=== PATIENT | male | born 1990 | race Caucasian/White ===

== ENCOUNTER 2016-11-10 07:33 | Emergency (ER) | payer BC, MEDICAID ==
[2016-11-10 07:43] VITALS: BP 148/95
--- NOTE | 2016-11-10 08:19 | UC ---
Yrn Haque Adam, [facility] on 11/10/16 at 0743 . Throat Pain/Nasal Brian HPI - HPI Summary HPI Summary: Doctor's Note: A 26 y/o white male presents with a cough for 1 week and a sore throat that began yesterday. In the [facility] vital signs are stable and the pt is afebrile. Note is made of BP of 148/95. Pulse ox is 96. The pain is described as 6/10. Pt does not smoke. He has had a heart ablation for tachycardia. He has multiple allergies. He is on no prescription medications. Review of EMR shows a visit in 2011 for palpitations. In Room: Pt states that his chief complaint is the cough. He has been producing some mucous with the cough. He states that the Robotussin he has been taking is not helping. He reports positive sore throat and some CP associated with the cough. He denies nasal discharge. He lives with his family and states that no one around him has been sick recently. He has been working outside doing [employer] for over a month and he states that he has been exposed to dust from cutting boards. Negative Hx of asthma, tobacco, or inhaler use. He denies any FMHx. - History of Current Complaint Chief Complaint: UCGeneralIllness Stated Complaint: COUGH SORE THROAT Hx Obtained From: Patient Onset/Duration: Gradual Onset, Lasting Days, Still Present Severity: Moderate Pain Intensity: 6 Pain Scale Used: 0-10 Numeric Cough: Productive Associated Signs & Symptoms: Negative: Nasal Discharge, Fever - Allergies/Home Medications Allergies/Adverse Reactions: Allergies Allergy/AdvReac Type Severity Reaction Status Date / Time Iodine Allergy Mild Hives Verified 11/10/16 07:37 Ketorolac Tromethamine Allergy Unknown Unknown Verified 11/10/16 07:37 [From Toradol] Reaction Details Latex Allergy Unknown Unknown Verified 11/10/16 07:37 Reaction Details Moxifloxacin [From Avelox] Allergy Unknown Unknown Verified 11/10/16 07:37 Reaction Details Penicillins [PCN] Allergy Unknown Unknown Verified 11/10/16 07:37 Reaction Details Home Medications: Home Medications Dextromethorphan Polistirex [Robitussin 12 Hour Cough] 1 PRN 11/10/16 [History] PMH/Surg Hx/FS Hx/Imm Hx Endocrine History Of: Denies: Diabetes, Thyroid Disease Cardiovascular History Of: Reports: Cardiac Disorders - tachycardia - heart surgery Denies: Hypertension Respiratory History Of: Denies: COPD, Asthma GI/ History Of: Denies: Ulcer - Surgical History Surgical History: Yes Surgery Procedure, Year, and Place: HEART ABLATION - Family History Known Family History: Positive: None - Per pt - Social History Occupation: Employed Full-time Lives: With Family - Mother Alcohol Use: None Substance Use Type: None Smoking Status (MU): Never Smoked Tobacco Review of Systems Constitutional: Negative ENT: Sore Throat Respiratory: Cough Cardiovascular: Chest Pain - With cough All Other Systems Reviewed And Are Negative: Yes Physical Exam Triage Information Reviewed: Yes Appearance: Well-Appearing, No Pain Distress, Well-Nourished Vital Signs: Initial Vital Signs Temp 97.2 F 11/10/16 07:38 Pulse 96 11/10/16 07:38 Resp 18 11/10/16 07:38 BP 148/95 11/10/16 07:38 Pulse Ox 96 11/10/16 07:38 Eyes: Positive: Conjunctiva Clear ENT: Positive: Hearing grossly normal, Pharyngeal erythema, TMs normal. Negative: Muffled/hoarse voice Neck: Positive: Supple, No Lymphadenopathy Respiratory: Positive: Chest non-tender, Other: - Extended expiratory phase Cardiovascular: Positive: RRR, No Murmur Abdomen Description: Positive: Nontender, No Organomegaly, Soft Bowel Sounds: Positive: Present Musculoskeletal: Positive: Strength Intact, ROM Intact Neurological: Positive: Alert Psychological: Positive: Age Appropriate Behavior Skin: Negative: rashes Diagnostics - Laboratory Diagnostic Studies Completed/Ordered: Group A Strep Rapid - Negative Throat Pain/Nasal Course/Dx - Course Course Of Treatment: Strep was negative. Assessment/Plan: Patient's examination does not suggest pneumonia. He does work outside and is exposed to dust. He is consistent with bronchitis with bronchospasm and his lungs appear to be hyperirritable. I discussed with pt the use of bronchodilators and various other techniques to deal with his cough. This condition has been present for a week. I will start him on Zithromax. 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 He states that he has been clean for over 8 months. His [facility] [employer] number is [id number]. The pt lives with his parents and will have his parents hold the Robotussin with codeine to be given to him only if needed prior to bed. - Differential Dx/Diagnosis Differential Diagnosis/HQI/PQRI: Other - Pneumonia vs bronchitis Provider Diagnoses: Bronchitis with bronchospasm Discharge - Discharge Plan Condition: Stable Disposition: HOME Prescriptions: Albuterol HFA INHALER* [Ventolin HFA Inhaler*] 1 - 2 puff INH Q4H PRN #1 mdi PRN Reason: Shortness Of Breath Azithromycin TAB* [Zithromax TAB*] 250 mg PO DAILY #6 tab Benzonatate CAP* [Tessalon CAP*] 100 mg PO TID #20 cap MDD 3 Spacer/Aerosol-Holding Chamber [Aerochamber Mv] 1 mis XX Q6HR #1 mis guaiFENesin/CODIEN 100MG-10MG* [Robitussin AC 100Mg-10Mg*] 5 ml PO Q4H #60 udc MDD 4 tsp Patient Education Materials: Acute Bronchitis (ED), Bronchospasm (ED) Referrals: Chapito SAUCEDA,Kyle Fiore [Primary Care Provider] - Additional Instructions: DISCUSSED: You have bronchitis with bronchospasm. 1. Use codeine only at night. Stop using if there are any problems. 2. You have cough pills for during the day. 3. Use inhaler and spacer, 2 puffs 4 times a day for 1-3 days. 4. Take Z cecil. 5. See other important information below. COUGH, CONGESTION of CHEST, SINUSES OR EARS: The most important goal is to liquefy all the phlegm and get it out of your head and chest. Any illness causing cough, congestion, sore throat or sinus discomfort can be helped by doing the following: STAND UNDER SHOWER STREAM TO LOOSEN SECRETIONS. STAY AWAY FROM ANY SMOKE OR IRRITANTS. WHAT ELSE CAN HELP RELIEVE YOUR SYMPTOMS: GENERAL TYPES OF MEDICINE THAT MAY HELP DECONGESTANTS: helps relieve stuffiness and clears sinuses. Pseudoephedrine ( Sudafed or generic) is effective but you need to ask the pharmacist for it because it may be kept behind the counter. ANTIHISTAMINES: are NOT helpful in many colds and flus because they can worsen sore throat, dry eyes and mouth and cause drowsiness. Examples are diphenhydramine, doxylamine and chlorpheniramine. They can help dry you out if you are having profuse, clear drainage from the nose. EXPECTORANTS: helps thin mucous in the nose and chest, making it easier to clear the fluid out. Expectorants are in most combination cough/cold remedies and should be taken with plenty of water. Guaifenesin is the most common expectorant and it comes in pill or liquid form. Mucinex is an extended release form of guaifenesin. COUGH SUPPRESANT: reduces the body's cough reflex. Dextromethorphan is in over the counter products, but sometimes narcotics such as codeine or hydrocodone are used to suppress cough. SPECIFIC MEDICATIONS: The most important goal is to liquefy all the phlegm and get it out of your head and chest: The following medicines (in prescription form or you can buy them without prescription) may help: To help with cough: DEXTROMETHORPHAN (Vicks, Robitussin, Nyquil and other brands) To help break up phlegm: GUAIFENESIN (Mucinex, Robitussin, other brands) To help clear congestion: PSEUDOEPHEDRINE (Sudafed, Dimetapp, other brands) TRY TO CLEAR NOSE: AFRIN NASAL SPRAY: 2-3 SPRAYS PER NOSTRIL, TWICE A DAY FOR TWO DAYS ONLY. USEFUL WAYS TO FEEL BETTER WITHOUT MEDICATIONS: STAND UNDER SHOWER STREAM TO LOOSEN SECRETIONS. USE A VAPORIZOR. STAY AWAY FROM ANY SMOKE OR IRRITANTS. USE SALINE NASAL SPRAY TO KEEP FLOW OF MUCOUS FROM NOSTRILS AND SINUSES. CONSIDER USING NETI POT TO HELP WITH ALLERGIES AND CONGESTION IN THE NOSE. USE THIS THREE TIMES A WEEK. YOU CAN GET THIS AT [employer] [place] OR VARIOUS DRUGSTORES. DRINK LOTS OF WARM FLUIDS USEFUL HOME REMEDIES: WARM WATER GARGLES, WITH TSP OF SALT PER 8 OUNCES OF WATER, GARGLE FOR A FEW SECONDS AND SPIT OUT; GARGLE AND SPIT OUT; EVERY THREE HOURS. AND/OR: WARM WATER OR TEA, HONEY AND LEMON; 2-3 CUPS A DAY. FOR SORE THROAT: KEEP THROAT MOIST WITH LOZENGES; TEA AND HONEY. USE WARM WATER GARGLES 3-4 TIMES A DAY. FOLLOW UP: RE-CHECK IN 1O DAYS, NEEDED, IF YOU ARE NOT IMPROVING. RETURN HERE OR SEE YOUR PHYSICIAN. RE-CHECK SOONER IF INCREASED PAIN OR TEMPERATURE. The documentation as recorded by the Yrn shields,Hussein accurately reflects the service I personally performed and the decisions made by me, Romulo Woodson MD.
== END 2016-11-10 08:20 | disposition home or self-care (01) ==
LOC: UCEAST 07:33
DX: J40 Bronchitis, not specified as acute or chronic (principal); Z88.0 Allergy status to penicillin
CPT/HCPCS: 87651; 99212; G0463

== ENCOUNTER 2016-11-24 10:31 | Emergency (ER) | payer BC, MEDICAID ==
--- NOTE | 2016-11-24 11:03 | UC ---
Cardiac HPI - HPI Summary HPI Summary: SUDDEN ONSET OF STERNAL CHEST PAIN AND SOB THIS MORNING 6:30AM WHILE GETTING OUT OF HIS CAR. NO STRENUOUS ACTIVITY PRIOR TO ONSET OF SX. HAS H/O TACHYCARDIA SYNDROME S/P CARDIAC ABLATION 2008. HAS BEEN WELL SINCE THEN UNTIL TODAY. DENIES AND NAUSEA OR SWEATS. LEFT ARM FELT STRANGE. - History of Current Complaint Chief Complaint: UCChestPain Stated Complaint: CHEST PAIN/SOB Time Seen by Provider: 11/24/16 10:55 Hx Obtained From: Patient Onset/Duration: Sudden Onset, Lasting Hours Initial Severity: Moderate Current Severity: Moderate Pain Intensity: 6 Chest Pain Location: Mid Sternal Character: Pressure/Squeezing Aggravating: Exertion, Deep Breaths Alleviating: Rest Associated Signs & Symptoms: Positive: Chest Pain, SOB - Allergy/Home Medications Allergies/Adverse Reactions: Allergies Allergy/AdvReac Type Severity Reaction Status Date / Time Iodine Allergy Mild Hives Verified 11/24/16 11:58 Ketorolac Tromethamine Allergy Unknown Unknown Verified 11/24/16 11:58 [From Toradol] Reaction Details Latex Allergy Unknown Unknown Verified 11/24/16 11:58 Reaction Details Moxifloxacin [From Avelox] Allergy Unknown Unknown Verified 11/24/16 11:58 Reaction Details Penicillins [PCN] Allergy Unknown Unknown Verified 11/24/16 11:58 Reaction Details Home Medications: Home Medications NK [No Home Medications Reported] 11/24/16 [History Confirmed 11/24/16] PMH/Surg Hx/FS Hx/Imm Hx Endocrine History Of: Denies: Diabetes, Thyroid Disease Cardiovascular History Of: Reports: Cardiac Disorders - tachycardia - ABLATION DONE 2008 Denies: Hypertension Respiratory History Of: Denies: COPD, Asthma GI/ History Of: Denies: Ulcer - Surgical History Surgical History: Yes Surgery Procedure, Year, and Place: HEART ABLATION - Family History Known Family History: Positive: Cardiac Disease - PGF Negative: Hypertension - Social History Alcohol Use: None Substance Use Type: None Smoking Status (MU): Never Smoked Tobacco Review of Systems Constitutional: Negative Skin: Negative Respiratory: Shortness Of Breath Cardiovascular: Chest Pain Gastrointestinal: Negative Genitourinary: Negative All Other Systems Reviewed And Are Negative: Yes Physical Exam Triage Information Reviewed: Yes Appearance: Well-Appearing, No Pain Distress, Well-Nourished Vital Signs: Initial Vital Signs Temp 98.8 F 11/24/16 10:36 Pulse 95 11/24/16 10:36 Resp 18 11/24/16 10:36 BP 143/97 11/24/16 10:36 Pulse Ox 99 11/24/16 10:36 Vital Signs Reviewed: Yes Eyes: Positive: Conjunctiva Clear ENT: Positive: Hearing grossly normal Neck: Positive: Supple, Nontender, No Lymphadenopathy Respiratory Exam: Normal Cardiovascular Exam: Normal Abdomen Description: Positive: Soft Musculoskeletal: Positive: No Edema Neurological: Positive: Alert Psychological: Positive: Normal Response To Family, Age Appropriate Behavior Skin: Negative: rashes Diagnostics - EKG Cardiac Rate: NL - 96BPM Cardiac Rhythm: Sinus: Normal Ectopy: None ST Segment: Normal - Differential Diagnoses - Chest Pain Differential Diagnosis/HQI/PQRI: ACS, Angina, Chest Wall, Pulmonary Embolism, Other: - PLEURISY - Clinical Impression Provider Diagnoses: CHEST PAIN - Physician Notifications Discussed Patient Care With: KALEIGH TY Time Discussed With Above Provider: 11:06 Instructed by Provider To: Transfer - [place] [facility] [place] [facility] [place] Discharge - Discharge Plan Condition: Stable Disposition: TRANS HIGHER LVL OF CARE FAC Referrals: No Primary Care Phys,NOPCP [Primary Care Provider] -
[2016-11-24 11:20] VITALS: BP 149/96
== END 2016-11-24 11:10 | disposition short-term general hospital (02) ==
LOC: UCEAST 10:31
DX: R07.2 Precordial pain (principal); R00.0 Tachycardia, unspecified; Z88.0 Allergy status to penicillin; Z88.3 Allergy status to other anti-infective agents; Z88.8 Allergy status to other drugs, medicaments and biological substances
CPT/HCPCS: 93005

== ENCOUNTER 2016-11-24 11:41 | Emergency (ER) | payer BC, MEDICAID ==
[2016-11-24 12:37] LABS: Hematocrit 46 % (42-52); Hemoglobin 15.5 g/dl (14.0-18.0); Mean Corpuscular HGB Conc 34 g/dl (31-36); Mean Corpuscular Hemoglobin 28 pg (27-31); Mean Corpuscular Volume 84 fL (80-94); Mean Platelet Volume 8 um3 (7.4-10.4); Red Blood Count 5.49 10^6/ul (4.0-5.4); Red Cell Distribution Width 15 % (10.5-15); White Blood Count 5.8 10^3/ul (3.5-10.8)
[2016-11-24 12:52] LABS: Albumin 4.6 g/dL (3.2-5.2); BUN/Creatinine Ratio 12.1 (8-20); Calcium 9.6 mg/dL (8.6-10.3); EGFR African American 130.6 (>60); EGFR Non-African American 101.5 (>60); Globulin 2.9 g/dL (2-4); Magnesium 2.2 mg/dL (1.9-2.7); Potassium 3.9 mmol/L (3.5-5.0); Total Bilirubin 0.4 mg/dL (0.2-1.0); Total Protein 7.5 g/dL (6.4-8.9)
--- NOTE | 2016-11-24 12:55 | RAD ---
INDICATION: Chest pain. COMPARISON: Chest x-ray December 23, 2011 TECHNIQUE: An AP portable view obtained at 1235 hours is submitted. FINDINGS: Bones/Soft Tissues: There are no acute bony findings. Cardiomediastinal: The cardiac mediastinal contours remain abnormal. Right peritracheal prominence around the ovoid left suprahilar abnormality are again seen. The left suprahilar masslike lesion appears slightly more prominent relative to the 2012 study.. If this has not been imaged with CT previously, suggest CT imaging at this time. Lungs: There are no infiltrates. There is no pneumothorax Pleura: There are no pleural effusions. Other: None IMPRESSION: ABNORMAL CARDIOMEDIASTINAL CONTOURS. SUGGEST CT IMAGING (SEE ABOVE).)
[2016-11-24] MEDS ORDERED: Morphine INJ* 4 MG/ML 1 ML CARPUJECT IV ONE (13:05)
[2016-11-24] MEDS ORDERED: Ondansetron INJ* 2 MG/ML VIAL IV ONE (13:05)
[2016-11-24] MEDS ORDERED: Iohexol 300* (CONTRAST) 10 ML SDV IV ONE (13:15)
[2016-11-24 13:22] LABS: TSH (Thyroid Stimulating Horm) 0.86 mcIU/mL (0.34-5.60)
--- NOTE | 2016-11-24 14:17 | RAD ---
INDICATION: Abnormal chest x-ray. COMPARISON: Comparison is made with prior chest x-ray studies from September 02, 2011, 2011 and November 24, 2016. TECHNIQUE: A CT scan of the chest was performed with intravenous contrast following intravenous injection of 80 ml of Omnipaque 300 nonionic contrast. Contiguous axial sections were obtained from the lung apices through the lung bases. Images were reconstructed in the coronal and sagittal planes. FINDINGS: There is a well-defined oval-shaped mass present adjacent to the the superior portion of the left hilum extending into the left upper lobe. This measures 3.4 x 2.3 x 2.8 cm and is uniform in density measuring slightly greater than fluid density. There is a small calcification along the inferior posterior aspect of the nodule. The lungs are otherwise clear with the exception of mild dependent bilateral lower lobe subsegmental atelectasis. No pleural effusion is seen. No significant enlarged mediastinal lymph nodes are seen. The heart is within normal limits in size. No pericardial effusion is present. The thoracic aorta is normal in caliber. Images of the upper abdomen demonstrate diffuse fatty infiltration of the liver. No significant focal osseous abnormality is seen. IMPRESSION: 1. THERE IS A MASS ADJACENT TO THE SUPERIOR ASPECT OF THE LEFT HILUM EXTENDING INTO THE LEFT UPPER LOBE. THIS HAS INCREASED SLIGHTLY IN SIZE FROM PRIOR STUDIES. THE IMAGING CHARACTERISTICS FAVOR A BENIGN LESION SUCH A BRONCHOGENIC CYST ALTHOUGH A LOW-GRADE TUMOR CANNOT BE EXCLUDED. RECOMMEND PULMONARY CONSULTATION AND CONSIDER AN MRI OF THE CHEST WITHOUT AND WITH CONTRAST FOR FURTHER EVALUATION. 2. HEPATIC STEATOSIS.
--- NOTE | 2016-11-24 14:30 | ED ---
Mya Haque Anna, scribed for Jose Bajwa MD on 11/24/16 at 1220 . HPI Chest Pain - HPI Summary HPI Summary: Patient is a 26 y/o male coming to [facility] presenting with sharp chest pain that started at 630 this morning when getting out of his car. He describes the severity of the pain as 7/10. Does not radiate. Exacerbated by deep breaths, lying flat, movement. Had a cardiac ablation as a result of an SVT eight years ago. Denies n/v. He additionally experienced dizziness and palpitations this morning lasting one hour. He Had bronchitis three weeks ago. Patient does not consume energy drinks. - History of Current Complaint Chief Complaint: EDChestPainROMI Time Seen by Provider: 11/24/16 12:11 Hx Obtained From: Patient Onset/Duration: Started Hours Ago Timing: Constant Pain Intensity: 7 Pain Scale Used: 0-10 Numeric - Allergy/Home Medications Allergies/Adverse Reactions: Allergies Allergy/AdvReac Type Severity Reaction Status Date / Time Iodine Allergy Mild Hives Verified 11/24/16 11:58 Ketorolac Tromethamine Allergy Unknown Unknown Verified 11/24/16 11:58 [From Toradol] Reaction Details Latex Allergy Unknown Unknown Verified 11/24/16 11:58 Reaction Details Moxifloxacin [From Avelox] Allergy Unknown Unknown Verified 11/24/16 11:58 Reaction Details Penicillins [PCN] Allergy Unknown Unknown Verified 11/24/16 11:58 Reaction Details PMH/Surg Hx/FS Hx/Imm Hx Endocrine/Hematology History: Denies: Hx Diabetes, Hx Thyroid Disease Cardiovascular History: Reports: Hx Supraventricular Ventricular Tachycardia Denies: Hx Hypertension Respiratory History: Denies: Hx Asthma, Hx Chronic Obstructive Pulmonary Disease (COPD) GI History: Denies: Hx Ulcer - Surgical History Surgery Procedure, Year, and Place: HEART ABLATION Infectious Disease History: No Infectious Disease History: Denies: Hx Clostridium Difficile, Hx Hepatitis, Hx Human Immunodeficiency Virus (HIV), Hx of Known/Suspected MRSA, Hx Shingles, Hx Tuberculosis, Hx Known/ Suspected VRE, Hx Known/Suspected VRSA, History Other Infectious Disease, Traveled Outside the [place] in Last 30 Days - Family History Known Family History: Positive: Cardiac Disease - PGF Negative: Hypertension - Social History Occupation: Employed Full-time Lives: With Family Alcohol Use: None Substance Use Type: Reports: None Smoking Status (MU): Never Smoked Tobacco Review of Systems Positive: Palpitations, Chest Pain Neurological: Other - dizziness All Other Systems Reviewed And Are Negative: Yes Physical Exam - Summary Physical Exam Summary: VITAL SIGNS: Reviewed. GENERAL: Patient is a well developed and nourished male who is lying comfortable in the stretcher. Patient is not in any acute respiratory distress. HEAD AND FACE: No signs of trauma. No ecchymosis, hematomas or skull depressions. No sinus tenderness. EYES: PERRLA, EOMI x 2, No injected conjunctiva, no nystagmus. EARS: Hearing grossly intact. Ear canals and tympanic membranes are within normal limits. MOUTH: Oropharynx within normal limits. NECK: Supple, trachea is midline, no adenopathy, no JVD, no carotid bruit, no c- spine tenderness, neck with full ROM. CHEST: Symmetric, no tenderness at palpation LUNGS: Clear to auscultation bilaterally. No wheezing or crackles. CVS: Regular rate and rhythm, S1 and S2 present, no murmurs or gallops appreciated. ABDOMEN: Soft, non-tender. No signs of distention. No rebound no guarding, and no masses palpated. Bowel sounds are normal. EXTREMITIES: FROM in all major joints, no edema, no cyanosis or clubbing. NEURO: Alert and oriented x 3. No acute neurological deficits. Speech is normal and follows commands. SKIN: Dry and warm Vital Signs On Initial Exam: Initial Vitals Temp Pulse Resp BP Pulse Ox 98 F 94 18 151/91 100 11/24/16 11:46 11/24/16 11:46 11/24/16 11:46 11/24/16 11:46 11/24/16 11:46 - [place] Coma Scale Coma Scale Total: 15 Diagnostics - Vital Signs Vital Signs Temp Pulse Resp BP Pulse Ox 11/24/16 11:46 98 F 94 18 151/91 100 - Laboratory Lab Results: Lab Results 11/24/16 11/24/16 11/24/16 Range/Units 12:20 12:20 12:20 WBC 5.8 (3.5-10.8) 10^3/ul RBC 5.49 H (4.0-5.4) 10^6/ul Hgb 15.5 (14.0-18.0) g/dl Hct 46 (42-52) % MCV 84 (80-94) fL MCH 28 (27-31) pg MCHC 34 (31-36) g/dl RDW 15 (10.5-15) % Plt Count 224 (150-450) 10^3/ul MPV 8 (7.4-10.4) um3 Neut % (Auto) 55.7 (38-83) % Lymph % (Auto) 25.1 (25-47) % Parke % (Auto) 15.1 H (1-9) % Eos % (Auto) 3.4 (0-6) % Baso % (Auto) 0.7 (0-2) % Absolute Neuts (auto) 3.2 (1.5-7.7) 10^3/ul Absolute Lymphs (auto) 1.4 (1.0-4.8) 10^3/ul Absolute Monos (auto) 0.9 H (0-0.8) 10^3/ul Absolute Eos (auto) 0.2 (0-0.6) 10^3/ul Absolute Basos (auto) 0 (0-0.2) 10^3/ul Absolute Nucleated RBC 0.01 10^3/ul Nucleated RBC % 0.1 Sodium 138 (133-145) mmol/L Potassium 3.9 (3.5-5.0) mmol/L Chloride 102 (101-111) mmol/L Carbon Dioxide 31 (22-32) mmol/L Anion Gap 5 (2-11) mmol/L BUN 11 (6-24) mg/dL Creatinine 0.91 (0.67-1.17) mg/dL Est GFR ( Amer) 130.6 (>60) Est GFR (Non-Af Amer) 101.5 (>60) BUN/Creatinine Ratio 12.1 (8-20) Glucose 93 (70-100) mg/dL Lactic Acid 1.2 (0.5-2.0) mmol/L Calcium 9.6 (8.6-10.3) mg/dL Magnesium 2.2 (1.9-2.7) mg/dL Total Bilirubin 0.40 (0.2-1.0) mg/dL AST 48 H (13-39) U/L ALT 87 H (7-52) U/L Alkaline Phosphatase 103 (34-104) U/L CK-MB (CK-2) 3.7 (0.6-6.3) ng/mL Myoglobin 78.7 (17.4-105.7) ng/mL Troponin I 0.00 (<0.04) ng/mL Total Protein 7.5 (6.4-8.9) g/dL Albumin 4.6 (3.2-5.2) g/dL Globulin 2.9 (2-4) g/dL Albumin/Globulin Ratio 1.6 (1-3) TSH 0.86 (0.34-5.60) mcIU/mL Result Diagrams: 11/24/16 12:20 11/24/16 12:20 Lab Statement: Any lab studies that have been ordered have been reviewed, and results considered in the medical decision making process. - Radiology CXR Xray Interpretation: Positive (See Comments) Radiology Interpretation Completed By: Radiologist - IMPRESSION: ABNORMAL CARDIOMEDIASTINAL CONTOURS. SUGGEST CT IMAGING - CT Chest CT CT Interpretation: Positive (See Comments) CT Interpretation Completed By: Radiologist - IMPRESSION: 1. THERE IS A MASS ADJACENT TO THE SUPERIOR ASPECT OF THE LEFT HILUM EXTENDING INTO THE LEFT UPPER LOBE. THIS HAS INCREASED SLIGHTLY IN SIZE FROM PRIOR STUDIES. THE IMAGING CHARACTERISTICS FAVOR A BENIGN LESION SUCH A BRONCHOGENIC CYST ALTHOUGH A LOW -GRADE TUMOR CANNOT BE EXCLUDED. RECOMMEND PULMONARY CONSULTATION AND CONSIDER AN MRI OF THE CHEST WITHOUT AND WITH CONTRAST FOR FURTHER EVALUATION. 2. HEPATIC STEATOSIS. - EKG 11:44 Cardiac Rate: NL - 93 bpm EKG Rhythm: Sinus Rhythm EKG Interpretation: No S/T elevation Chest Pain Course/Dx - Course Assessment/Plan: Patient is a 26 y/o male coming to [facility] presenting with sharp chest pain that started at 630 this morning when getting out of his car. He describes the severity of the pain as 7/10. Does not radiate. Exacerbated by deep breaths, lying flat, movement. Had a heart abrasion as a result of an SVT eight years ago. Denies n/v. He additionally experienced dizziness and palpitations this morning lasting one hour. He Had bronchitis three weeks ago. Patient does not consume energy drinks. Blood work wnl. Troponin is 0.00. EKG is a NSR w/o STACY unchanged from 12/23/11. CXR IMPRESSION: 1. THERE IS A MASS ADJACENT TO THE SUPERIOR ASPECT OF THE LEFT HILUM EXTENDING INTO THE LEFT UPPER LOBE. THIS HAS INCREASED SLIGHTLY IN SIZE FROM PRIOR STUDIES. THE IMAGING CHARACTERISTICS FAVOR A BENIGN LESION SUCH A BRONCHOGENIC CYST ALTHOUGH A LOW -GRADE. TUMOR CANNOT BE EXCLUDED. RECOMMEND PULMONARY CONSULTATION AND CONSIDER AN MRI OF THE CHEST WITHOUT AND WITH CONTRAST FOR FURTHER EVALUATION. 2. HEPATIC STEATOSIS. Chest CT impression: IMPRESSION: 1. THERE IS A MASS ADJACENT TO THE SUPERIOR ASPECT OF THE LEFT HILUM EXTENDING INTO THE LEFT UPPER LOBE. THIS HAS INCREASED SLIGHTLY IN SIZE FROM PRIOR STUDIES. THE IMAGING CHARACTERISTICS FAVOR A BENIGN LESION SUCH A BRONCHOGENIC CYST ALTHOUGH A LOW -GRADE. TUMOR CANNOT BE EXCLUDED. RECOMMEND PULMONARY CONSULTATION AND CONSIDER AN MRI OF THE CHEST WITHOUT AND WITH CONTRAST FOR FURTHER EVALUATION. 2. HEPATIC STEATOSIS. At this point I discussed extensively with the patient the results of the CXR and CT. Patient has an appointment with Dr. Garcia from pulmonology tomorrow at 11:30 AM. I discussed all my findings and test results with the patient. Patient understands and agrees. Patient was instructed to return to the emergency room immediately if any of the symptoms return or worsens. Patient understands and agrees. Plan of care was discussed with the patient and patient understands and agrees with the plan of care. All questions were answered at patient satisfaction. There were no further complaints or concerns. Patient was instructed to follow up with primary care physician within 3 to 5 days. Patient is hemodynamically stable. Patient is alert and oriented x 3. No acute neurological deficits. - Chest Pain Differential Diagnosis/HQI/PQRI: ACS, Angina, Chest Wall, Lower Respiratory Infection - Diagnoses Provider Diagnoses: Pulmonary mass, Chest pain - Provider Notifications Discussed Care Of Patient With: Dr. Garcia's office (pulmonary). Pt will see Dr. Garcia tomorrow morning at 11:30. Discharge - Discharge Plan Condition: Stable Disposition: HOME Patient Education Materials: Chest Pain (ED) Referrals: Evelyn Garcia MD [Medical Doctor] - Additional Instructions: Follow up with Dr. Garcia tomorrow morning, 11/25/2016, at 11:30. Return to the emergency department for changing or worsening symptoms. The documentation as recorded by the Mya shields Anna accurately reflects the service I personally performed and the decisions made by , Jose Bajwa MD.
[2016-11-24 14:52] VITALS: BP 143/78
== END 2016-11-24 14:54 | disposition home or self-care (01) ==
LOC: ED 11:41
DX: R91.8 Other nonspecific abnormal finding of lung field (principal); R07.9 Chest pain, unspecified; R00.2 Palpitations
CPT/HCPCS: 36415; 71010; 71260; 80053; 82553; 83605; 83735; 83874; 84443; 84484; 85025; 93005; 96374; 96375; 99283; J2270; J2405; Q9967

== ENCOUNTER 2017-12-29 14:57 | Emergency (ER) | payer BC, MEDICAID ==
[2017-12-29 15:08] VITALS: BP 142/86
--- NOTE | 2017-12-29 15:24 | UC ---
Respiratory Complaint HPI - HPI Summary HPI Summary: 27 yo WM p/w nasal congestion, severe post nasal drip exacerbating cough x3-4 days associated with mild throat irritation. Denies f/c - History of Current Complaint Chief Complaint: UCRespiratory Stated Complaint: sinus congestion, and cough Time Seen by Provider: 12/29/17 15:15 Hx Obtained From: Patient Onset/Duration: Gradual Onset, Lasting Days Severity Initially: Moderate Pain Intensity: 0 Character: Cough: Nonproductive - Allergies/Home Medications Allergies/Adverse Reactions: Allergies Allergy/AdvReac Type Severity Reaction Status Date / Time iodine Allergy Hives Verified 12/29/17 15:09 ketorolac Allergy Hives Verified 12/29/17 15:10 latex Allergy Unknown Verified 12/29/17 15:11 Reaction Details moxifloxacin [From Avelox] Allergy Hives Verified 12/29/17 15:12 Penicillins Allergy Hives Verified 12/29/17 15:10 PMH/Surg Hx/FS Hx/Imm Hx - Additional Past Medical History Additional PMH: none - Surgical History Surgical History: Yes Surgery Procedure, Year, and Place: HEART ABLATION - Family History Known Family History: Positive: None - Per pt, Cardiac Disease - PGF Negative: Hypertension - Social History Alcohol Use: None Substance Use Type: None Smoking Status (MU): Current Every Day Smoker Review of Systems Constitutional: Negative Skin: Negative Eyes: Negative ENT: Sore Throat, Nasal Discharge, Sinus Congestion Respiratory: Negative Cardiovascular: Negative Gastrointestinal: Negative Genitourinary: Negative Motor: Negative Neurovascular: Negative Musculoskeletal: Negative Neurological: Negative Psychological: Negative All Other Systems Reviewed And Are Negative: Yes Physical Exam Triage Information Reviewed: Yes Vital Signs: Initial Vital Signs Temp 36.8 C 12/29/17 15:05 Pulse 92 12/29/17 15:05 Resp 12 12/29/17 15:05 BP 142/86 12/29/17 15:05 Pulse Ox 100 12/29/17 15:05 Eye Exam: Normal ENT Exam: Normal ENT: Positive: Pharyngeal erythema, Nasal congestion, Nasal drainage, TMs normal. Negative: TM red, Tonsillar swelling, Tonsillar exudate Dental Exam: Normal Neck exam: Normal Neck: Positive: No Lymphadenopathy Respiratory Exam: Normal Respiratory: Positive: Lungs clear Cardiovascular Exam: Normal Abdominal Exam: Normal Musculoskeletal Exam: Normal Neurological Exam: Normal Psychological Exam: Normal Skin Exam: Normal UC Diagnostic Evaluation - Laboratory O2 Sat by Pulse Oximetry: 100 Respiratory Course/Dx - Differential Dx/Diagnosis Provider Diagnoses: URI Discharge - Discharge Plan Condition: Stable Disposition: HOME Prescriptions: Fluticasone NASAL SPRAY 50MCG* [Flonase NASAL SPRAY 50MCG*] 2 spray BOTH NARES DAILY 7 Days #1 btl Pseudoephedrine HCL ER TAB* [Sudafed 12 Hour*] 120 mg PO BID 5 Days #10 tab.er Patient Education Materials: Upper Respiratory Infection (ED) Referrals: No Primary Care Phys,NOPCP [Primary Care Provider] -
== END 2017-12-29 15:38 | disposition home or self-care (01) ==
LOC: UCEAST 14:57
DX: J06.9 Acute upper respiratory infection, unspecified (principal); Z88.8 Allergy status to other drugs, medicaments and biological substances; Z88.1 Allergy status to other antibiotic agents; Z91.040 Latex allergy status; F17.210 Nicotine dependence, cigarettes, uncomplicated
CPT/HCPCS: 99212; G0463

== ENCOUNTER 2019-11-15 08:15 | Emergency (ER) | payer BC ==
[2019-11-15 08:38] VITALS: BP 134/68
[2019-11-15 08:47] LABS: Influenza A Molecular NEGATIVE (Negative); Influenza B Molecular NEGATIVE (Negative)
--- NOTE | 2019-11-15 08:56 | UC ---
Throat Pain/Nasal Brian HPI - HPI Summary HPI Summary: 29-year-old male comes in with a chief complaint of 2 days of sore throat and body aches. Also has some sinus pressure and nasal congestion and cough. He's tried [id number] medications with very little relief. No complaint of any chest congestion. - History of Current Complaint Chief Complaint: UCGeneralIllness Stated Complaint: SORE THROAT BODYACHES Time Seen by Provider: 11/15/19 08:45 Pain Intensity: 1 - Allergies/Home Medications Allergies/Adverse Reactions: Allergies Allergy/AdvReac Type Severity Reaction Status Date / Time iodine Allergy Hives Verified 11/15/19 08:32 ketorolac Allergy Hives Verified 11/15/19 08:32 latex Allergy Unknown Verified 11/15/19 08:32 Reaction Details moxifloxacin [From Avelox] Allergy Hives Verified 11/15/19 08:32 Penicillins Allergy Hives Verified 11/15/19 08:32 Home Medications: Home Medications Ibuprofen TAB* [Motrin TAB* 800 MG] 800 mg PO ONCE 11/15/19 [History Confirmed 11/15/19] PMH/Surg Hx/FS Hx/Imm Hx Previously Healthy: Yes - Surgical History Surgical History: Yes Surgery Procedure, Year, and Place: HEART ABLATION 2009 - Family History Known Family History: Positive: None - Per pt, Cardiac Disease - PGF Negative: Hypertension - Social History Alcohol Use: None Substance Use Type: None Smoking Status (MU): Never Smoked Tobacco Review of Systems All Other Systems Reviewed And Are Negative: Yes Constitutional: Positive: Fatigue, Other - see hpi Skin: Positive: Negative Eyes: Positive: Negative ENT: Positive: Sore Throat, Nasal Discharge, Sinus Congestion Respiratory: Positive: Cough Cardiovascular: Positive: Negative Gastrointestinal: Positive: Negative Motor: Positive: Negative Neurovascular: Positive: Negative Musculoskeletal: Positive: Myalgia Neurological: Positive: Negative Psychological: Positive: Negative Is Patient Immunocompromised?: No Physical Exam Triage Information Reviewed: Yes Appearance: No Pain Distress, Well-Nourished, Ill-Appearing - mild Vital Signs: Initial Vital Signs Temp 99.4 F 11/15/19 08:33 Pulse 97 11/15/19 08:33 Resp 18 11/15/19 08:33 BP 134/68 11/15/19 08:33 Pulse Ox 96 11/15/19 08:33 Vital Signs Reviewed: Yes Eye Exam: Normal Eyes: Positive: Conjunctiva Clear ENT: Positive: Pharyngeal erythema, Nasal congestion, Nasal drainage, TMs normal Neck: Positive: Supple Respiratory: Positive: Lungs clear, Normal breath sounds, No respiratory distress Cardiovascular: Positive: RRR Musculoskeletal: Positive: Strength Intact, ROM Intact Neurological: Positive: Alert, Muscle Tone Normal Psychological: Positive: Age Appropriate Behavior Skin Exam: Normal Throat Pain/Nasal Course/Dx - Course Course Of Treatment: DISCUSSED VIRAL VERSES BACTERIAL INFECTIONS AND THE ROLE OF ANTIBIOTICS. THE PATIENT PREFERS TO HAVE AN ANTIBIOTIC RX TO BE USED IF DOES NOT IMPROVE. - Differential Dx/Diagnosis Provider Diagnosis: Pharyngitis, Upper respiratory infection, Myalgia Discharge ED - Sign-Out/Discharge Documenting (check all that apply): Patient Departure All imaging exams completed and their final reports reviewed: No Studies - Discharge Plan Condition: Stable Disposition: HOME Prescriptions: DOXYcycline CAP(*) [DOXYcycline 100MG CAP(*)] 100 mg PO BID #20 cap Patient Education Materials: Pharyngitis (ED), Upper Respiratory Infection (ED) Referrals: [facility] [place] [facility] [Outside] Additional Instructions: FOLLOW UP WITH YOUR DOCTOR IF NOT COMPLETELY IMPROVED. GET REEVALUATED SOONER IF NOT IMPROVED OR WORSE OR ANY QUESTIONS OR CONCERNS. - Billing Disposition and Condition Condition: STABLE Disposition: Home
[2019-11-15] MEDS: Acetaminophen TAB* 325 MG PO ONE (08:57)
== END 2019-11-15 09:09 | disposition home or self-care (01) ==
LOC: UCEAST 08:15
DX: J06.9 Acute upper respiratory infection, unspecified (principal); J02.9 Acute pharyngitis, unspecified; M79.10 Myalgia, unspecified site; Z88.0 Allergy status to penicillin; Z88.1 Allergy status to other antibiotic agents; Z88.8 Allergy status to other drugs, medicaments and biological substances; Z91.09 Other allergy status, other than to drugs and biological substances; Z91.040 Latex allergy status
CPT/HCPCS: 87651; 99212; A9270-GY; G0463